=== PATIENT | male | born 1980 | race Caucasian/White ===

== ENCOUNTER 2017-08-07 19:43 | Emergency (ER) | payer BC, OTHER ==
[~2017-08-07] VITALS: Ht 167.6 cm; Wt 79.4 kg
[2017-08-07] MEDS ORDERED: ACETAMINOPHEN-1 EAC1 PO (20:18)
[2017-08-07] MEDS ORDERED: PREDNISONE 20 M20 MG PO (20:18)
== END 2017-08-07 20:47 | disposition home or self-care (01) ==
LOC: ER 19:43
DX: M54.42 Lumbago with sciatica, left side (principal); F17.210 Nicotine dependence, cigarettes, uncomplicated